=== PATIENT | male | born 1995 | race Caucasian/White ===

== ENCOUNTER 2016-09-02 08:35 | Emergency (ER) | payer SELFPAY ==
[~2016-09-02] VITALS: Ht 182.9 cm; Wt 68.0 kg
[2016-09-02 08:37] VITALS: BP 116/75; PULSE 74; RESP 16; TEMP 97.3; O2SAT 98
[2016-09-02] MEDS ORDERED: AMOX875T PO (09:34)
--- NOTE | 2016-09-02 09:37 | PD ---
HPI Chief Complaint: Cold / Flu Symptoms Time Seen by Provider: 09:34 Travel History International Travel<30 days: No Contact w/Intl Traveler<30days: No Traveled to known affect area: No History of Present Illness HPI 20-year-old male presents to the emergency department for evaluation of sore throat, nasal congestion and ear pain for 2 days. Patient states that he is in school learning how to fly and is unable to fly due to his ear pain. States that he thinks he may have an ear infection. He denies decreased hearing but does complain of pressure and pain in his years. States he had a subjective fever last night. States he does have a mild nonproductive cough. Denies shortness of breath, chest pain, abdominal pain, nausea, vomiting, diarrhea, lightheadedness or dizziness. No other complaints. PFSH Past Medical History Medical History: Denies Significant Hx Social History Alcohol Use: No Tobacco Use: No Allergies-Medications (Allergen,Severity, Reaction): Coded Allergies: No Known Allergies (Unverified , 09/02/16) Reported Meds & Prescriptions Reported Meds & Active Scripts Active Amoxicillin 875 Mg Tab 875 Mg PO BID 10 Days Review of Systems Except as stated in HPI: all other systems reviewed are Neg Physical Exam Narrative GENERAL: Well-nourished and well-developed pleasant patient in no acute distress who is nontoxic appearing. SKIN: Warm and dry. HEAD: Normocephalic and atraumatic. EYES: No injection, drainage, or hyphema noted. PERRLA. EOMI. ENT: No nasal drainage noted. Oropharynx shows bilaterally erythematous and edematous tonsils, no exudates. Bilateral tympanic membranes with effusion, erythema to the right tympanic membrane. No perforation. NECK: Supple and the trachea is midline. No lymphadenopathy is noted throughout the cervical chains. CARDIOVASCULAR: Regular rate and rhythm. RESPIRATORY: Breath sounds are equal bilaterally with no accessory muscle use, wheezing, rhonchi, or crackles. NEUROLOGICAL: Awake, alert, and oriented. Normal speech and gait. Cranial nerves are grossly intact. Data Data Last Documented VS Vital Signs Date Time Temp Pulse Resp B/P Pulse Ox O2 Delivery O2 Flow Rate FiO2 09/02/16 08:37 97.3 74 16 116/75 98 Room Air MDM Medical Decision Making Medical Screen Exam Complete: Yes Emergency Medical Condition: Yes Differential Diagnosis Otitis media versus URI versus pharyngitis Narrative Course 20-year-old male presents to the emergency department for evaluation of nasal congestion, ear pain and sore throat. Patient is afebrile, vital signs are stable. The patient has otitis media and upper respiratory infection. Patient will be treated with amoxicillin. Instructed to go [id number] Claritin. Patient verbalizes understanding and agreement with treatment plan. Diagnosis Primary Impression: Otitis media of both ears Qualified Code: H66.93 - Bilateral otitis media, unspecified chronicity, unspecified otitis media type Additional Impression: URI (upper respiratory infection) Qualified Code: J06.9 - Upper respiratory tract infection, unspecified type Patient Instructions: General Instructions, Otitis Media (ED), Upper Respiratory Infection (ED) Additional Instructions: Take [id number] Claritin. Take medication as prescribed with food and a full glass of water. Follow-up with your Primary Care Physician. Return to the ED for any acute worsening of symptoms. Med/Other Pt SpecificInfo: Prescription(s) given Scripts Amoxicillin 875 Mg Ars531 Mg PO BID 10 Days Ref 0 Prov:Татьяна Barton MD 09/02/16 Disposition: 01 DISCHARGE HOME Condition: Stable Nery Mcnulty Sep 02, 2016 09:37
== END 2016-09-02 09:57 | disposition home or self-care (01) ==
LOC: NEPB 08:35
DX: H66.93 Otitis media, unspecified, bilateral (principal); J06.9 Acute upper respiratory infection, unspecified; R50.9 Fever, unspecified; R05 Cough
CPT/HCPCS: 99283